=== PATIENT | male | born 1985 | race Caucasian/White ===

== ENCOUNTER 2016-10-28 12:35 | Emergency (ER) | payer BC ==
[2016-10-28 13:20] VITALS: BP 147/100
--- NOTE | 2016-10-28 14:14 | UC ---
Back Pain HPI - HPI Summary HPI Summary: This morning he felt a sharp pain in between his shoulder blades when bending to tie his shoes. The pain almost caused him to fall. He took a Tylenol with little to no relief. He states that when he is sitting, it is a throbbing, aching pain. It feels better to stand up and walk. - History of Current Complaint Chief Complaint: UCBackPain Stated Complaint: UPPER BACK PAIN Time Seen by Provider: 10/28/16 13:58 Hx Obtained From: Patient Onset/Duration: Sudden Onset Timing: Constant Severity Initially: Severe Severity Currently: Moderate Pain Intensity: 7 Pain Scale Used: 0-10 Numeric Back Pain: Is Discrete @ - upper back, in between shoulder blades Character: Dull, Aching, Throbbing Alleviating: Position - Allergies/Home Medications Allergies/Adverse Reactions: Allergies Allergy/AdvReac Type Severity Reaction Status Date / Time No Known Allergies Allergy Verified 10/28/16 13:22 Home Medications: Home Medications Acetaminophen [Acetaminophen Extra Stren] 500 mg PO PRN 10/28/16 [History] PMH/Surg Hx/FS Hx/Imm Hx Previously Healthy: Yes Endocrine History Of: Reports: Diabetes - Type I Denies: Thyroid Disease Cardiovascular History Of: Reports: Hypertension Denies: Cardiac Disorders, Congestive Heart Failure Respiratory History Of: Denies: COPD, Asthma GI/ History Of: Denies: Ulcer, Renal Disease - Surgical History Surgical History: None - Family History Known Family History: Positive: Hypertension - Social History Occupation: Employed Full-time Lives: With Family Alcohol Use: None Alcohol Amount: 4 Substance Use Type: None Smoking Status (MU): Former Smoker Type: Smokeless Tobacco Length of Time of Smoking/Using Tobacco: used for 10 yrs When Did the Patient Quit Smoking/Using Tobacco: quit 08/07 Review of Systems Constitutional: Negative Skin: Negative Eyes: Negative ENT: Negative Respiratory: Negative Cardiovascular: Negative Gastrointestinal: Negative Genitourinary: Negative Motor: Negative Neurovascular: Negative Musculoskeletal: Decreased ROM, Other: - pain in upper back Neurological: Negative Psychological: Negative All Other Systems Reviewed And Are Negative: Yes Physical Exam Triage Information Reviewed: Yes Appearance: Well-Appearing, No Pain Distress Vital Signs: Initial Vital Signs Temp 98.6 F 10/28/16 13:08 Pulse 97 10/28/16 13:08 Resp 14 10/28/16 13:08 BP 147/100 10/28/16 13:08 Pulse Ox 100 10/28/16 13:08 Vital Signs Reviewed: Yes Eye Exam: Normal Eyes: Positive: Conjunctiva Clear ENT Exam: Normal Neck exam: Normal Neck: Positive: Supple, Nontender Respiratory Exam: Normal Respiratory: Positive: Chest non-tender, Lungs clear, Normal breath sounds, No respiratory distress Cardiovascular Exam: Normal Cardiovascular: Positive: RRR, No Murmur Musculoskeletal Exam: Other Musculoskeletal: Positive: ROM Limited @ - Pain in between shoulders with lifting arms above head and putting hands behind head. Pain in between the shoulders with bending forward. Strength in neck is normal., Other: - Pain with palpation in between scapula middle to upper back Neurological Exam: Normal Neurological: Positive: Alert, Muscle Tone Normal Psychological Exam: Normal Psychological: Positive: Age Appropriate Behavior Skin Exam: Normal Back Pain Course/Dx - Course Course Of Treatment: This is most likely a subscapular muscle strain. We would like for him to use Ibuprofen for pain. He may also use ice for pain. Follow-up with his primary care provider if pain worsens or does not improve in a week. - Differential Dx/Diagnosis Differential Diagnosis/HQI/PQRI: Herniated Disc, Strain, Sprain Provider Diagnoses: Muscle Strain. Elevated blood pressure due to pain Discharge - Discharge Plan Condition: Stable Disposition: HOME Patient Education Materials: Back Pain (ED) Print Language: FRISIAN Referrals: Ar Márquez MD [Primary Care Provider] - Additional Instructions: This is most likely back pain due to a muscle strain. We would like for you to take Ibuprofen for the pain. You may also use ice. If the pain worsens or does not improve in a week, please return or follow-up with your primary care provider.
== END 2016-10-28 14:35 | disposition home or self-care (01) ==
LOC: UCCORT 12:35
DX: S29.012A Strain of muscle and tendon of back wall of thorax, initial encounter (principal); X58.XXXA Exposure to other specified factors, initial encounter; Y93.9 Activity, unspecified; Y92.9 Unspecified place or not applicable; E10.9 Type 1 diabetes mellitus without complications; I10 Essential (primary) hypertension; Z87.891 Personal history of nicotine dependence
CPT/HCPCS: 99211; G0463

== ENCOUNTER 2017-06-08 23:20 | Emergency (ER) | payer BC ==
[2017-06-09 00:09] LABS: Hematocrit 40 % (42-52); Hemoglobin 13.7 g/dl (14.0-18.0); Mean Corpuscular HGB Conc 34 g/dl (31-36); Mean Corpuscular Hemoglobin 27 pg (27-31); Mean Corpuscular Volume 80 fL (80-94); Mean Platelet Volume 7 um3 (7.4-10.4); Red Blood Count 4.98 10^6/ul (4.0-5.4); Red Cell Distribution Width 14 % (10.5-15); White Blood Count 14.6 10^3/ul (3.5-10.8)
[2017-06-09 00:25] LABS: ALT 20 U/L (7-52); AST 21 U/L (13-39); Albumin 4.4 g/dL (3.2-5.2); Alkaline Phosphatase 80 U/L (34-104); Anion Gap 11 mmol/L (2-11); BUN/Creatinine Ratio 14.8 (8-20); Blood Urea Nitrogen 19 mg/dL (6-24); C Reactive Protein 8.78 mg/L (< 5.00); CO2 Carbon Dioxide 22 mmol/L (22-32); Calcium 9.5 mg/dL (8.6-10.3); Chloride 98 mmol/L (101-111); EGFR African American 84.9 (>60); Glucose 398 mg/dL (70-100); Potassium 4.7 mmol/L (3.5-5.0); Sodium 131 mmol/L (133-145); Total Protein 7.4 g/dL (6.4-8.9)
[2017-06-09] MEDS ORDERED: NS 0.9% 1000 ML* 2,000 ML IV ONE (01:39)
[2017-06-09 02:44] LABS: Urine Bilirubin Negative (Negative); Urine Glucose 3+(>=500 mg/dL) (Negative); Urine Nitrite Negative (Negative)
[2017-06-09] MEDS ORDERED: Insulin REGULAR(*) 1 UNITS UNIT IV PUSH ONE (02:49)
[2017-06-09] MEDS ORDERED: Acetaminophen TAB* 325 MG PO ONE (04:14)
[2017-06-09] MEDS ORDERED: Azithromycin IV(*) 500 MG in NS 0.9% 250 ML* 250 ML IVPB ONE (04:30)
[2017-06-09 04:50] LABS: Lipase < 10 U/L (11.0-82.0)
--- NOTE | 2017-06-09 06:20 | ED ---
Emely Garcia Alfonso, scribed for Kalyan Mendoza MD on 06/09/17 at 0134 . HPI Diabetic - HPI Summary HPI Summary: This patient is a 32 year old M with type I IDDM presenting to [facility] accompanied by and daughter with a chief complaint of abdominal pain since this afternoon. The abdominal pain is described as tightness. The patient rates the pain 8/10 in severity. Symptoms aggravated by nothing. Symptoms alleviated by nothing. Patient reports vomiting, diarrhea, ketones in urine, coughing (two weeks), and chest tightness. Patient denies dysuria and ETOH use. 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 Pt completed a course of prednisone two days ago. - History Of Current Complaint Chief Complaint: EDDiabeticProb Hx Obtained From: Patient Onset/Duration: Gradual Onset, Lasting Hours, Still Present Timing: Constant Severity Currently: Moderate - 8/10 pain Character: Alert Aggravating: Nothing Alleviating: Nothing Associated Signs & Symptoms: Cough, Diarrhea, Vomiting Related History: DM I - Allergies/Home Medications Allergies/Adverse Reactions: Allergies Allergy/AdvReac Type Severity Reaction Status Date / Time No Known Allergies Allergy Verified 06/08/17 23:40 PMH/Surg Hx/FS Hx/Imm Hx Endocrine/Hematology History: Reports: Hx Diabetes - Type I Denies: Hx Systemic Lupus Erythematosus, Hx Thyroid Disease Cardiovascular History: Reports: Hx Hypertension Denies: Hx Congestive Heart Failure Respiratory History: Denies: Hx Asthma, Hx Chronic Obstructive Pulmonary Disease (COPD) GI History: Denies: Hx Ulcer History: Denies: Hx Dialysis, Hx Renal Disease Musculoskeletal History: Denies: Hx Rheumatoid Arthritis - Cancer History Hx Chemotherapy: No - Surgical History Surgery Procedure, Year, and Place: right eye 12/[address] [facility] [place] - Immunization History Date of Tetanus Vaccine: Unk Date of Influenza Vaccine: Fall 2013 Infectious Disease History: No Infectious Disease History: Denies: Hx Hepatitis, Hx Human Immunodeficiency Virus (HIV), History Other Infectious Disease, Traveled Outside the [place] in Last 30 Days - Family History Known Family History: Positive: Hypertension, Diabetes - Social History Alcohol Use: None Alcohol Amount: 4 Hx Substance Use: No Substance Use Type: Reports: None Hx Tobacco Use: Yes Smoking Status (MU): Never Smoked Tobacco Type: Smokeless Tobacco Length of Time of Smoking/Using Tobacco: used for 10 yrs Have You Smoked in the Last Year: No Review of Systems Positive: Cough, Other - chest tightness Positive: Abdominal Pain, Vomiting, Diarrhea Positive: other - ketones in urine. Negative: dysuria Neurological: Other - Negative ETOH use All Other Systems Reviewed And Are Negative: Yes Physical Exam - Summary Physical Exam Summary: Appearance: Well-appearing, Well-nourished Sin: Warm and dry Eyes: Normal ENT: Normal, Dry appearing mucous membranes Neck: Supple, nontender Respiratory: Clear to auscultation Cardiovascular: Normal, Normal distal pulses Abdomen: Soft, Generalized abdominal tenderness. No rebound or guarding. Bowel: Present Musculoskeletal: Normal, Strength/ROM Intact Neurological: Normal, A&Ox3 Psychiatric: Normal Triage Information Reviewed: Yes Vital Signs On Initial Exam: Initial Vitals Temp Pulse Resp BP Pulse Ox 98.2 F 114 16 148/82 98 06/08/17 23:35 06/08/17 23:35 06/08/17 23:35 06/08/17 23:35 06/08/17 23:35 Vital Signs Reviewed: Yes Diagnostics - Vital Signs Vital Signs Temp Pulse Resp BP Pulse Ox 06/09/17 01:09 108 96 06/09/17 01:06 118/62 06/08/17 23:35 98.2 F 114 16 148/82 98 - Laboratory Lab Results: Lab Results 06/08/17 06/08/17 06/08/17 Range/Units 23:50 23:50 23:50 WBC 14.6 H (3.5-10.8) 10^3/ul RBC 4.98 (4.0-5.4) 10^6/ul Hgb 13.7 L (14.0-18.0) g/dl Hct 40 L (42-52) % MCV 80 (80-94) fL MCH 27 (27-31) pg MCHC 34 (31-36) g/dl RDW 14 (10.5-15) % Plt Count 337 (150-450) 10^3/ul MPV 7 L (7.4-10.4) um3 Neut % (Auto) 92.0 H (38-83) % Lymph % (Auto) 3.1 L (25-47) % Mower % (Auto) 4.5 (1-9) % Eos % (Auto) 0.3 (0-6) % Baso % (Auto) 0.1 (0-2) % Absolute Neuts (auto) 13.4 H (1.5-7.7) 10^3/ul Absolute Lymphs (auto) 0.5 L (1.0-4.8) 10^3/ul Absolute Monos (auto) 0.7 (0-0.8) 10^3/ul Absolute Eos (auto) 0 (0-0.6) 10^3/ul Absolute Basos (auto) 0 (0-0.2) 10^3/ul Absolute Nucleated RBC 0 10^3/ul Nucleated RBC % 0 Sodium 131 L (133-145) mmol/L Potassium 4.7 (3.5-5.0) mmol/L Chloride 98 L (101-111) mmol/L Carbon Dioxide 22 (22-32) mmol/L Anion Gap 11 (2-11) mmol/L BUN 19 (6-24) mg/dL Creatinine 1.28 H (0.67-1.17) mg/dL Est GFR ( Amer) 84.9 (>60) Est GFR (Non-Af Amer) 66.0 (>60) BUN/Creatinine Ratio 14.8 (8-20) Glucose 398 H (70-100) mg/dL Lactic Acid 1.3 (0.5-2.0) mmol/L Calcium 9.5 (8.6-10.3) mg/dL Total Bilirubin 0.70 (0.2-1.0) mg/dL AST 21 (13-39) U/L ALT 20 (7-52) U/L Alkaline Phosphatase 80 (34-104) U/L C-Reactive Protein 8.78 H (< 5.00) mg/L Total Protein 7.4 (6.4-8.9) g/dL Albumin 4.4 (3.2-5.2) g/dL Globulin 3.0 (2-4) g/dL Albumin/Globulin Ratio 1.5 (1-3) Influenza A (Rapid) (Negative) Influenza B (Rapid) (Negative) 06/09/17 Range/Units 00:09 WBC (3.5-10.8) 10^3/ul RBC (4.0-5.4) 10^6/ul Hgb (14.0-18.0) g/dl Hct (42-52) % MCV (80-94) fL MCH (27-31) pg MCHC (31-36) g/dl RDW (10.5-15) % Plt Count (150-450) 10^3/ul MPV (7.4-10.4) um3 Neut % (Auto) (38-83) % Lymph % (Auto) (25-47) % Mower % (Auto) (1-9) % Eos % (Auto) (0-6) % Baso % (Auto) (0-2) % Absolute Neuts (auto) (1.5-7.7) 10^3/ul Absolute Lymphs (auto) (1.0-4.8) 10^3/ul Absolute Monos (auto) (0-0.8) 10^3/ul Absolute Eos (auto) (0-0.6) 10^3/ul Absolute Basos (auto) (0-0.2) 10^3/ul Absolute Nucleated RBC 10^3/ul Nucleated RBC % Sodium (133-145) mmol/L Potassium (3.5-5.0) mmol/L Chloride (101-111) mmol/L Carbon Dioxide (22-32) mmol/L Anion Gap (2-11) mmol/L BUN (6-24) mg/dL Creatinine (0.67-1.17) mg/dL Est GFR ( Amer) (>60) Est GFR (Non-Af Amer) (>60) BUN/Creatinine Ratio (8-20) Glucose (70-100) mg/dL Lactic Acid (0.5-2.0) mmol/L Calcium (8.6-10.3) mg/dL Total Bilirubin (0.2-1.0) mg/dL AST (13-39) U/L ALT (7-52) U/L Alkaline Phosphatase (34-104) U/L C-Reactive Protein (< 5.00) mg/L Total Protein (6.4-8.9) g/dL Albumin (3.2-5.2) g/dL Globulin (2-4) g/dL Albumin/Globulin Ratio (1-3) Influenza A (Rapid) Negative (Negative) Influenza B (Rapid) Negative (Negative) Result Diagrams: 06/08/17 23:50 06/08/17 23:50 Lab Statement: Any lab studies that have been ordered have been reviewed, and results considered in the medical decision making process. Diabetic Course/Dx - Course Course Of Treatment: sugars improved, symptomaticlayl improved afte rfluids, insulin, and abx, instructed to continue azithromycin and to return to the ED for any worsening or concerning sxs .no anion gap acidosis; normal bicarb. - Diagnoses Provider Diagnoses: Hyperglycemia, Fever Discharge - Discharge Plan Condition: Improved Disposition: HOME Prescriptions: Azithromyxin AUGUSTINE (NF) [Z-Augustine (Zithromax) 250 mg tabs #6] 2 tab PO .TODAY, THEN 1 DAILY #6 tab Referrals: Paul Hackett MD [Primary Care Provider] - Additional Instructions: PLEASE MAKE AN APPOINTMENT FIRST THING IN THE MORNING TO BE SEEN BY YOUR SURFACER WITHIN 2-3 DAYS PLEASE RETURN TO THE EMERGENCY ROOM IF YOU HAVE ANY WORSENING OR CONCERNING SYMPTOMS The documentation as recorded by the Emely diop Alfonso accurately reflects the service I personally performed and the decisions made by me, Kalyan Mendoza MD.
[2017-06-09 06:36] VITALS: BP 112/64
--- NOTE | 2017-06-09 10:05 | RAD ---
INDICATION: Cough and chest pain COMPARISON: Chest x-ray dated July 18, 2015 TECHNIQUE: PA and lateral views of the chest were obtained. FINDINGS: The heart and mediastinum are normal in size and contour. The lungs are grossly clear. There is no evidence of large pleural effusion. Visualized bones are normal for the patient's age. There is no radiographic evidence of free air beneath the diaphragm IMPRESSION: No radiographic evidence of acute cardiopulmonary disease.
== END 2017-06-09 06:36 | disposition home or self-care (01) ==
LOC: ED 23:20
DX: E10.65 Type 1 diabetes mellitus with hyperglycemia (principal); R11.10 Vomiting, unspecified; R19.7 Diarrhea, unspecified; R10.9 Unspecified abdominal pain; R50.9 Fever, unspecified
CPT/HCPCS: 36415; 71020; 80053; 81003; 83605; 83690; 85025; 86140; 87502; 99284; A9270-GY; J0456

== ENCOUNTER 2019-09-08 09:10 | Emergency (ER) | payer BC ==
[2019-09-08 09:24] VITALS: BP 140/92
--- NOTE | 2019-09-08 09:46 | UC ---
Dental HPI - HPI Summary HPI Summary: Patient is a 34yo male presenting with right lower pain where his tooth was pulled 3 days ago. Patient states he was given a 3 day course of metronidazole after the tooth was pulled and he finished it yesterday. States the pain worsened yesterday and it throbbing even more today. States the gums seem swollen to him. Denies radiating pain. Denies bleeding or drainage. Denies fever and chills. Denies n/v. Patient states he was not able to be seen by his dentist today but that he has follow up scheduled tomorrow. - History of Current Complaint Chief Complaint: UCDentalProblem Stated Complaint: TOOTH PULLED ON SUNDAY, NOW IN ALOT OF PAIN Hx Obtained From: Patient Pain Intensity: 9 Pain Scale Used: 0-10 Numeric - Allergies/Home Medications Allergies/Adverse Reactions: Allergies Allergy/AdvReac Type Severity Reaction Status Date / Time No Known Allergies Allergy Verified 09/08/19 09:18 Home Medications: Home Medications Baclofen 1 tab PO DAILY PRN 09/08/19 [History Confirmed 09/08/19] Chlorhexidine MW 0.12% 473ML* [Peridex Mouth Wash 0.12%] 1 dose PO DAILY PRN [History Confirmed 09/08/19] Glucagon,Human Recombinant [Glucagon Emergency Kit] 1 dose SUBCUT ONCE PRN 09/08 [History Confirmed 09/08/19] Ibuprofen 800 mg PO ONCE PRN 09/08/19 [History Confirmed 09/08/19] Oxycodone HCl/Acetaminophen [Percocet 5-325 mg Tablet] 1 tab PO Q4HR PRN [History Confirmed 09/08/19] PMH/Surg Hx/FS Hx/Imm Hx - Surgical History Surgical History: Yes Surgery Procedure, Year, and Place: right eye 12/2016 [facility]. oral surgery - Family History Known Family History: Positive: Hypertension, Diabetes - Social History Alcohol Use: None Alcohol Amount: 4 Substance Use Type: None Smoking Status (MU): Never Smoked Tobacco Type: Smokeless Tobacco Length of Time of Smoking/Using Tobacco: used for 10 yrs Have You Smoked in the Last Year: No When Did the Patient Quit Smoking/Using Tobacco: quit 08/07 Review of Systems All Other Systems Reviewed And Are Negative: Yes Constitutional: Positive: Negative. Negative: Fever, Chills ENT: Positive: Dental Pain - right lower Respiratory: Positive: Negative Cardiovascular: Positive: Negative Gastrointestinal: Positive: Negative. Negative: Vomiting, Nausea Neurovascular: Positive: Negative Musculoskeletal: Positive: Negative Neurological/Mental Status: Positive: Negative Physical Exam - Summary Physical Exam Summary: Vital Signs Reviewed: Yes A+Ox3, no distress Eyes: Conjunctiva Clear ENT: Hearing grossly normal Dental exam: +pain with palpation where tooth #4 was extracted, scant purulent drainage and surrounding erythema noted, non bleeding, no edema Neck: supple, no adenopathy Respiratory: Positive: No respiratory distress, No accessory muscle use Cardiovascular: skin color reflect adequate perfusion Musculoskeletal Exam: RAI x 4 without difficulty Neurological: Positive: Alert, ambulatory without difficulty Psychological: Positive: age appropriate behavior Skin: Positive: no rash, no ecchymosis Vital Signs: Initial Vital Signs Temp 97.6 F 09/08/19 09:16 Pulse 81 09/08/19 09:16 Resp 18 09/08/19 09:16 BP 140/92 09/08/19 09:16 Pulse Ox 100 09/08/19 09:16 Dental Complaint Course/Dx - Course Course Of Treatment: I treated patient with clindamycin for dental abscess and provided viscous lidocaine for pain relief. Educated patient on clindamycin and recommendation to take probiotics or eat malaysian yogurt while taking it to avoid c. diff infecton and GI upset. Instructed to follow up with his dentist as scheduled tomorrow for further eval and treatment. Patient voiced understanding and agreed with treatment plan. - Differential Dx/Diagnosis Differential Diagnosis/Dx: Dental Abscess Provider Diagnosis: Dental abscess Discharge ED - Sign-Out/Discharge Documenting (check all that apply): Patient Departure All imaging exams completed and their final reports reviewed: No Studies - Discharge Plan Condition: Stable Disposition: HOME Prescriptions: Clindamycin Cap(NF) [Clindamycin Cap 300 mg Cap(NF)] 300 mg PO Q6H #28 cap Patient Education Materials: Dental Abscess (ED) Referrals: Paul Hackett MD [Primary Care Provider] - Additional Instructions: Take clindamycin every 6 hours for 7 days for your dental infection. This medication can cause GI upset and an infectious diarrhea called C. diff. It is recommended that you take a probiotic or eat malaysian yogurt to help prevent this. You may apply the viscous lidocaine to the area with a Q tip every 4 hours as needed for pain relief. You may also take over the counter pain medications as directed. It is very important that you follow up with your dentist tomorrow as scheduled for further evaluation. - Billing Disposition and Condition Condition: STABLE Disposition: Home
[2019-09-08] MEDS ORDERED: Lidocaine 2% VISCOUS* 15 ML UDC PO ONE (10:04)
== END 2019-09-08 10:23 | disposition home or self-care (01) ==
LOC: UCEAST 09:10
DX: K04.7 Periapical abscess without sinus (principal)
CPT/HCPCS: 99202; G0463

== ENCOUNTER 2019-09-19 10:01 | Emergency (ER) | payer BC ==
[2019-09-19] MEDS ORDERED: Ondansetron INJ* 2 MG/ML VIAL IV ONE (10:20)
[2019-09-19] MEDS ORDERED: NS 0.9% 1000 ML** 2,000 ML IV ONE (10:20)
--- NOTE | 2019-09-19 10:25 | ED ---
HPI Diabetic - HPI Summary HPI Summary: This pt is a 34 Y/O M presenting to [facility] with a CC of possible DKA. He states that he has diffuse abdominal pain that is rated a 9/10 in severity. He states that he has been nauseous and vomiting since last night and currently has shortness of breath and chest pain. He states that his last FBG was 130 and he used a ketone strip at home that found he was positive. His states that he is presenting similar symptoms to a previous episode of DKA. He states that he took clindamycin for a week prior to the onset of symptoms for a tooth infection. He states that he has a PMHx of DKA following an infection. He has no alleviating factors. - History Of Current Complaint Chief Complaint: EDDiabeticProb Time Seen by Provider: 09/19/19 10:15 Hx Obtained From: Patient Last Known Well Date: 09/18/2019 Onset/Duration: Sudden Onset, Lasting Hours, Still Present Timing: Constant Severity Initially: Severe Severity Currently: Severe Character: Alert Aggravating: Recent Illness - states tooth infection Alleviating: Nothing Associated Signs & Symptoms: Abdominal Pain, Nausea, Shortness of Breath, Vomiting Related History: DM I, Hx of DKA - Allergies/Home Medications Allergies/Adverse Reactions: Allergies Allergy/AdvReac Type Severity Reaction Status Date / Time No Known Allergies Allergy Verified 09/19/19 10:05 Home Medications: Home Medications hydrOXYzine HCL TAB* [Atarax 25 MG TAB*] 25 mg PO BEDTIME PRN 05/31/17 [History Confirmed 09/19/19] Baclofen 10 mg PO QID PRN 09/08/19 [History Confirmed 09/19/19] Insulin LISPRO* [HumaLOG*] 0 unit SUBCUT DAILY 09/19/19 [History Confirmed 09/19] Lisinopril TAB* [Prinivil TAB 10 MG*] 10 mg PO DAILY 09/19/19 [History Confirmed 09/19/19] Multivitamins/Minerals TAB* [Theragran/minerals TAB*] 1 tab PO DAILY 09/19/19 [ History Confirmed 09/19/19] Ondansetron HCl [Zofran 4 MG TAB] 4 mg PO Q6H PRN #10 tab 09/19/19 [Rx] PMH/Surg Hx/FS Hx/Imm Hx Previously Healthy: Yes Endocrine/Hematology History: Reports: Hx Diabetes - Type I Denies: Hx Systemic Lupus Erythematosus, Hx Thyroid Disease Cardiovascular History: Reports: Hx Hypertension Denies: Hx Congestive Heart Failure Respiratory History: Denies: Hx Asthma, Hx Chronic Obstructive Pulmonary Disease (COPD) GI History: Denies: Hx Ulcer History: Denies: Hx Dialysis, Hx Renal Disease Musculoskeletal History: Denies: Hx Rheumatoid Arthritis - Cancer History Hx Chemotherapy: No Hx Radiation Therapy: No - Surgical History Surgical History: Yes Surgery Procedure, Year, and Place: right eye 12/2016 [facility]. oral surgery - Immunization History Date of Tetanus Vaccine: Unk Date of Influenza Vaccine: Fall 2013 Immunizations Up to Date: Yes Infectious Disease History: No Infectious Disease History: Denies: Hx Hepatitis, Hx Human Immunodeficiency Virus (HIV), History Other Infectious Disease, Traveled Outside the in Last 30 Days - Family History Known Family History: Positive: Hypertension, Diabetes - Social History Occupation: Employed Full-time Lives: With Family Alcohol Use: None Alcohol Amount: 4 Hx Substance Use: No Substance Use Type: Reports: None Hx Tobacco Use: Yes Smoking Status (MU): Never Smoked Tobacco Type: Smokeless Tobacco Length of Time of Smoking/Using Tobacco: used for 10 yrs Have You Smoked in the Last Year: No Review of Systems Positive: Chest Pain Positive: Shortness Of Breath Positive: Abdominal Pain, Vomiting, Nausea All Other Systems Reviewed And Are Negative: Yes Physical Exam - Summary Physical Exam Summary: VITAL SIGNS: Reviewed. GENERAL: Patient is a well-developed and nourished male who is lying comfortable in the stretcher. Patient is not in any acute respiratory distress. HEAD AND FACE: No signs of trauma. No ecchymosis, hematomas or skull depressions. No sinus tenderness. EYES: PERRLA, EOMI x 2, No injected conjunctiva, no nystagmus. EARS: Hearing grossly intact. Ear canals and tympanic membranes are within normal limits. MOUTH: Oropharynx within normal limits. Dry mucous membranes NECK: Supple, trachea is midline, no adenopathy, no JVD, no carotid bruit, no c- spine tenderness, neck with full ROM. CHEST: Symmetric, no tenderness at palpation. LUNGS: Clear to auscultation bilaterally. No wheezing or crackles. CVS: Regular rate and rhythm, S1 and S2 present, no murmurs or gallops appreciated. ABDOMEN: Soft, non-tender. No signs of distention. No rebound, no guarding, and no masses palpated. Bowel sounds are normal. EXTREMITIES: FROM in all major joints, no edema, no cyanosis or clubbing. NEURO: Alert and oriented x 3. No acute neurological deficits. Speech is normal and follows commands. SKIN: Dry and warm. Triage Information Reviewed: Yes Vital Signs On Initial Exam: Initial Vitals Temp Pulse Resp BP Pulse Ox 97.9 F 102 18 173/89 97 09/19/19 10:02 09/19/19 10:02 09/19/19 10:02 09/19/19 10:02 09/19/19 10:02 Vital Signs Reviewed: Yes Procedures - Sedation Patient Received Moderate/Deep Sedation with Procedure: No Diagnostics - Vital Signs Vital Signs Temp Pulse Resp BP Pulse Ox 09/19/19 10:02 97.9 F 102 18 173/89 97 - Laboratory Result Diagrams: 09/19/19 10:48 09/19/19 10:48 Lab Statement: Any lab studies that have been ordered have been reviewed, and results considered in the medical decision making process. - Radiology CXR Radiology Interpretation Completed By: Radiologist Summary of Radiographic Findings: No acute cardio or pulmonary issues. ED physician has reviewed this report. - EKG 1042 Cardiac Rate: NL - 93 BPM EKG Rhythm: Sinus Rhythm ST Segment: Normal Ectopy: None Summary of EKG Findings: An EKG at 1042 reveals normal sinus rhythm at 93 BPM, with Q waves present in lead 3. No STEMI. No acute changes. Interpreted by Dr. Ji at 1046 09/19/2019. Re-Evaluation - Re-Evaluation First Eval Re-Evaluation Time: 13:18 Change: Improved Comment: Pt states that he feels much better. Able to tollerate PO liquids and light food without complaint. Diabetic Course/Dx - Course Assessment/Plan: This pt is a 34 Y/O M presenting to [facility] with a CC of possible DKA. He states that he has diffuse abdominal pain that is rated a 9/10 in severity. He states that he has been nauseous and vomiting since last night and currently has shortness of breath and chest pain. He states that his last FBG was 130 and he used a ketone strip at home that found he was positive. His states that he is presenting similar symptoms to a previous episode of DKA. He states that he took clindamycin for a week prior to the onset of symptoms for a tooth infection. He states that he has a PMHx of DKA following an infection. He has no alleviating factors. Initially the patient was given 2 L of IV fluids, Zofran for nausea and vomiting. EKG shows a normal sinus rhythm without any significant elevation. Blood work without a significant abnormality except for WBCs of 16.2, slight anemia, chloride 99, anion gap is 12 , glucose is 206, calcium 11. Urinalysis is negative for UTI. ABG shows a pH of 7.46. In the ED course the patient was given IV fluids and Zofran and after these medications the patients symptoms service all. The patient is not in DKA and he feels better. He is tolerating fluids orally without any nausea and vomiting. Therefore he will be discharged home with follow-up with PCP. The patient is hemodynamically stable alert oriented 3. I discussed all the findings and test results with the patient. Patient was instructed to return to the emergency room immediately if any of the symptoms return worsens. Plan of care was discussed with the patient and understands and agrees. All questions were answered at patient satisfaction. There were no further complaints or concerns. Lung exam before discharge: CTA B/L. Good air exchange. No wheezing or crackles heard. CVS: S1 and S2 present. No murmurs appreciated. Patient is alert and oriented x 3. Patient is hemodynamically stable. Patient will be discharged home with follow up PCP in the next 2-3 days - Diagnoses Provider Diagnoses: Hyperglycemia, Nausea Discharge ED - Sign-Out/Discharge Documenting (check all that apply): Patient Departure - discharge - Discharge Plan Condition: Good Disposition: HOME Prescriptions: Ondansetron HCl [Zofran 4 MG TAB] 4 mg PO Q6H PRN #10 tab PRN Reason: Vomiting Patient Education Materials: Acute Nausea and Vomiting (ED), Diabetic Hyperglycemia (ED) Referrals: Paul Hackett MD [Primary Care Provider] - 2 Days Additional Instructions: PLEASE FOLLOW UP WITH YOUR PRIMARY CARE EPROVIDER IN 1-3 DAYS AND RETURN TO THE EMERGENCY DEPARTMENT FOR ANY NEW OR WORSENING SYMPTOMS. - Billing Disposition and Condition Condition: GOOD Disposition: Home - Attestation Statements Document Initiated by Scribe: Yes Documenting Scribe: Chon Morgan Provider For Whom Scribe is Documenting (Include Credential): Ron Ji MD Scribe Attestation: I, Chon Morgan, scribed for Ron Ji MD on 09/19/19 at 1823. Scribe Documentation Reviewed: Yes Provider Attestation: The documentation as recorded by the Chon diop accurately reflects the service I personally performed and the decisions made by me, Ron Ji MD Status of Scribe Document: Viewed
[2019-09-19 11:00] LABS: ABS Monocytes 0.8 10^3/ul (0-0.8); ABS Neutrophils 14.4 10^3/ul (1.5-7.7); Hematocrit 40 % (42-52); Hemoglobin 13.8 g/dL (14.0-18.0); Lymphocyte % 6.2 %; Mean Corpuscular HGB Conc 35 g/dL (31-36); Mean Corpuscular Hemoglobin 28 pg (27-31); Mean Corpuscular Volume 80 fL (80-94); Mean Platelet Volume 7.2 fL (7.4-10.4); Platelet Count 345 10^3/uL (150-450); Red Blood Count 4.98 10^6 /uL (4.18-5.48); Red Cell Distribution Width 14 % (10-15); White Blood Count 16.2 10^3/uL (3.5-10.8)
[2019-09-19 11:50] LABS: Albumin 4.6 g/dL (3.2-5.2); Albumin/Globulin Ratio 1.6 (1-3); BUN/Creatinine Ratio 14.7 (8-20); C Reactive Protein 1.33 mg/L (<8.01); EGFR African American 88.3 (>60); Globulin 2.9 g/dL (2-4); Potassium 4.3 mmol/L (3.5-5.0); Total Bilirubin 0.6 mg/dL (0.2-1.0); Total Protein 7.5 g/dL (6.4-8.9)
[2019-09-19 13:02] LABS: Urine Appearance Clear; Urine Bilirubin Negative (Negative); Urine Blood Negative (Negative); Urine Color Yellow; Urine Glucose 1+(50 mg/dL) (Negative); Urine Ketones 1+ (Negative); Urine Nitrite Negative (Negative); Urine Protein Negative (Negative); Urine Specific Gravity 1.016 (1.010-1.030); Urine Urobilinogen Negative (Negative)
[2019-09-19 14:18] VITALS: BP 138/83
== END 2019-09-19 14:21 | disposition home or self-care (01) ==
LOC: ED 10:01
DX: E10.65 Type 1 diabetes mellitus with hyperglycemia (principal); I10 Essential (primary) hypertension; Z87.891 Personal history of nicotine dependence; Z79.4 Long term (current) use of insulin; Z79.899 Other long term (current) drug therapy
CPT/HCPCS: 36415; 71045; 80053; 81003; 82550; 82803; 83605; 84484; 85025; 86140; 93005; 96361; 96374; 99284; J2405

== ENCOUNTER 2023-10-31 02:27 | Inpatient (IN) ==
[2023-10-31 03:15] LABS: ABS Eosinophils 0.2 10^3/uL (0.0-0.5); ABS Lymphocytes 2.3 10^3/uL (1.0-4.8); ABS Monocytes 0.7 10^3/uL (0.0-1.1); ABS Neutrophils 3.9 10^3/uL (1.5-7.6); ABS Nucleated RBC 0.01 10^3/ul; Eosinophil % 2.9 %; Hematocrit 41.6 % (38-53); Hemoglobin 13.9 g/dL (13.2-16.3); Lymphocyte % 32.2 %; Mean Corpuscular Hemoglobin 27.5 pg (27-33); Mean Corpuscular Hgb Conc 33.5 g/dL (31-36); Mean Corpuscular Volume 82.2 fL (80-97); Mean Platelet Volume 6.9 fL (7.5-11.2); Nucleated Red Blood Cells % 0.2 %/100WBC (0.0-0.8); Platelet Count 338 10^3/uL (150-450); Red Blood Count 5.06 10^6/uL (4.06-5.63); Red Cell Distribution Width 15.4 % (12-17); White Blood Count 7.1 10^3/uL (3.6-10.2)
[2023-10-31 03:21] LABS: Urine Appearance Clear; Urine Bilirubin Negative (Negative); Urine Blood Negative (Negative); Urine Color Colorless; Urine Glucose 4+ (>=1000 mg/dL) (Negative); Urine Ketones Negative (Negative); Urine Nitrite Negative (Negative); Urine Protein Negative (Negative); Urine Urobilinogen Negative (Negative); Urine pH 6.5 (5.0-8.0)
[2023-10-31 03:34] LABS: ALT 22 U/L (7-52); AST 21 U/L (13-39); Acetaminophen < 15 mcg/mL; Albumin 4.3 g/dL (3.2-5.2); Albumin/Globulin Ratio 1.6 (1-3); Alcohol, S 168 mg/dL (<13); Alkaline Phosphatase 90 U/L (35-149); Anion Gap 11 mmol/L (2-16); Blood Urea Nitrogen 4 mg/dL (6-24); CO2 Carbon Dioxide 26 mmol/L (22-32); Calcium 9.2 mg/dL (8.6-10.3); Chloride 105 mmol/L (101-111); Globulin 2.7 g/dL (2-4); Glucose 123 mg/dL (70-100); Potassium 3.2 mmol/L (3.5-5.0); Salicylate < 2.50 mg/dL (<30); Sodium 142 mmol/L (135-145); Total Bilirubin 0.3 mg/dL (0.2-1.0)
[2023-10-31 03:49] LABS: TSH Ultra Thyroid Stim Horm 2.65 mcIU/mL (0.34-5.60)
[2023-10-31 07:39] LABS: Urine Benzodiazepine Screen None Detected (None Detect); Urine Cannabinoids Screen None Detected (None Detect); Urine Opiates Screen None Detected (None Detect)
[2023-10-31] MEDS ORDERED: Al Hydrox/Mg Hydrox/Simet LIQ 30 ML UDC PO PRN (09:59)
[2023-10-31 11:21] VITALS: BP 127/86
[2023-10-31] MEDS ORDERED: Dextrose 50% Syringe 50 ml 25 GM/50 ML SYRINGE IV PUSH PRN ×2 (13:33→13:36)
[2023-10-31] MEDS ORDERED: Insulin GLARGINE 100 un/ml 10 ml VIAL SUBCUT SCH ×3 (15:15→21:00)
[2023-10-31] MEDS: Insulin GLARGINE 100 un/ml 10 ml VIAL SUBCUT ONE (15:17)
[2023-11-01 08:59] LABS: HDL Cholesterol 51.5 mg/dL
[2023-11-01] MEDS: Multivitamins/Minerals TAB PO SCH (10:24)
[2023-11-01] MEDS: Vitamin THERAPEUTIC TAB PO SCH (10:24)
[2023-11-01] MEDS ORDERED: Insulin GLARGINE 100 un/ml 10 ml VIAL SUBCUT SCH (21:00)
== END 2023-11-01 14:00 | disposition home or self-care (01) | DRG 775 ==
LOC: ED 02:27 → EDHOLD 09:59 → BSU 10:56
PROVIDERS: ADMIT Student in an Organized Health Care Education/Training Program; ATTEND Student in an Organized Health Care Education/Training Program